=== PATIENT | male | born 1980 | race Caucasian/White ===

== ENCOUNTER 2017-08-23 09:41 | Day surgery (SDC) | payer OTHER ==
[~2017-08-23 09:41] MED LIST: Buffered Lidocaine 0.9% SYRIN* 5 ML/SYR SYRINGE INTRADERM ONE; Dexamethasone TAB* 4 MG PO ONE; DiMENhydriNATE IV* 50 MG/ML VIAL IV PUSH PRN; Famotidine IV* 10 MG/ML 2 ML (20 mg) IV ONE; Morphine INJ* 2 MG/ML 1 ML CARPUJECT IV PRN; Naloxone* 0.4 MG/ML 1 ML VIAL IV PRN; Ondansetron INJ* 2 MG/ML VIAL ONE; PROCHLORPERAZINE INJ 5 MG/ML 2 ML VIAL IV PRN; fentaNYL* 50 MCG/ML 2 ML VIAL (100 MCG VIAL) IV PRN
[2017-08-23] MEDS ORDERED: fentaNYL* 50 MCG/ML 5 ML VIAL (250 MCG VIAL) ONE (09:48)
[2017-08-23] MEDS ORDERED: Midazolam* 1 MG/ML 5 ML VIAL (5 MG) ONE (09:48)
[2017-08-23] MEDS ORDERED: Dexamethasone TAB* 4 MG ONE (09:51)
[2017-08-23] MEDS ORDERED: Famotidine IV* 10 MG/ML 2 ML (20 mg) ONE (09:51)
[2017-08-23] MEDS ORDERED: Ondansetron ODT TAB* 4 MG ONE (09:51)
[2017-08-23] MEDS ORDERED: ceFAZolin 2 GM PREMIX (*) 2 GM/50 ML BAG IVPB ONE (09:52)
[2017-08-23] MEDS ORDERED: Atracurium* 10 MG/ML 10 ML VIAL ONE (09:57)
[2017-08-23] MEDS ORDERED: Bupivacaine 0.5% SDV PF* 30ML VIAL ONE (10:56)
[2017-08-23] MEDS ORDERED: Neostigmine Methylsulfate* 2 MG/2 ML SYRINGE ONE (11:50)
[2017-08-23] MEDS ORDERED: Ketorolac INJ* 30 MG/ML 1 ML VIAL ONE (11:50)
[2017-08-23] MEDS ORDERED: Propofol* 10 MG/ML 20 ML BTL IV PUSH ONE (11:50)
[2017-08-23] MEDS ORDERED: PROCHLORPERAZINE INJ 5 MG/ML 2 ML VIAL ONE (11:50)
[2017-08-23] MEDS ORDERED: Glycopyrrolate IV* 0.2 MG/ML 1 ML VIAL ONE ×2 (11:50→12:03)
[2017-08-23] MEDS ORDERED: oxyCODONE/Acetamin 5/325 MG* TAB ONE (12:55)
[2017-08-23] MEDS: oxyCODONE/Acetamin 5/325 MG* TAB PO PRN ×2 (12:57→12:58)
--- NOTE | 2017-08-23 13:07 | OP ---
Operative Report - Blank - Operative Report Date of Operation: 08/23/17 Note: PATIENT: Fabiana Horton DATE OF : 1980 DATE OF SURGERY: 08/23/2017 SURGEON: Chris Brasher MD LANDSCAPE MANAGER: SHAYLA Mcguire, whos assistance was necessary for positioning, retraction, help with instrumentation, and closure. ANESTHESIOLOGIST: Dr. Garza PREOPERATIVE DIAGNOSIS: Right Achilles tendon rupture POSTOPERATIVE DIAGNOSIS: Right Achilles tendon rupture OPERATION: Right Achilles tendon repair ANESTHESIA: GETA IMPLANTS: none TOURNIQUET TIME: Less than 60 minutes with a well-padded thigh tourniquet at 250mmHg SPECIMENS: none ESTIMATED BLOOD LOSS: minimal COMPLICATIONS: none STATUS: Stable from the operating room to the recovery room and then home. INDICATIONS FOR PROCEDURE: Fabiana sustained the above injury. Both operative and non operative treatment alternatives were reviewed. Further, the nature and risks of surgery were reviewed in careful detail in the office as well as in the preoperative holding area. Our discussions regarding the risks of surgery included, but were not limited to, infection, wound problems, nerve injury, neuroma, RSD, persistent symptoms, blood clot, re-rupture or failure to heal, failure of the surgery, and even the remote chance of catastrophic complication, including loss of limb. DESCRIPTION OF PROCEDURE: The patient was seen in the preoperative holding unit and informed written consent was obtained. The appropriate extremity was marked. The patient was then brought to the operating room and carefully positioned on the operating room table. Anesthesia was induced. All bony prominences were padded with great care. A well-padded thigh tourniquet was placed. A chlorhexidine based pre- scrub was performed followed by a chloraprep prep and drape in standard sterile fashion. A surgical safety pause was then conducted in which we confirmed the appropriate patient, extremity, planned procedure, availability of equipment, indication and administration of prophylactic antibiotics, and DVT prophylaxis in the form of a compression boot on the non-surgical extremity. An Esmarch exsanguination of the extremity was performed and the tourniquet was inflated. I then began by making a 3 cm incision slightly posteromedial overlying the Achilles tendon. I carried the dissection down through the soft tissue and exposed the peritenon. I then came through this sharply in line with the Achilles. I exposed the Achilles tendon, which was completely ruptured. We irrigated out hematoma. At this point, I utilized an Allis clamp to pull the proximal segment distally and passed a malleable between the tendon and the peritenon posteriorly. This mobilized the proximal segment back to its proper location. I then passed a bent ringed forceps within the peritenon around the tendon proximally. We used a Andrea needle to pass #2 Fiberwire through the skin and then through the forceps, Achilles, and then through the other side. By pulling the forceps back out of the wound, we brought the suture out through the wound having been passed through the tendon. We repeated this two additional times, moving approximately 1 cm distally through the proximal segment. We similarly used the bent forceps to pass 3 strands of #2 Fiberwire through the distal segment. These sutures all had excellent purchase on the tendon. At this point, we placed a bump underneath the dorsum of the left foot to plantarflex the ankle. We then tied the sutures together, positioning the knot away from the skin edges. This nicely reapproximated the tendon ends with resting tension of the Achilles similar to the contralateral extremity, which had been assessed prior to prepping and draping. There was a restored Haile test. We then irrigated copiously. We closed in layers meticulously utilizing 3-0 Monocryl for the peritenon layer, 3-0 Monocryl for the subdermal layer, and 3-0 nylon for the skin. A sterile dressing was then applied followed by a splint with the ankle in resting equinus position. The patient was then awakened from anesthesia and transferred to the recovery room in stable condition. There were no complications. All needle and sponge counts were correct at the end of the case. ATTESTATION: I attest I was present and scrubbed and performed the critical portions of the procedure myself. POSTOPERATIVE PLAN: The patient will remain [id number] for two weeks and follow up in two weeks for likely suture removal and Steri-Strip application. We will then progress via my postoperative protocol.
[2017-08-23 13:32] VITALS: BP 121/70
== END 2017-08-23 13:44 | disposition home or self-care (01) ==
LOC: OR 09:41
PROVIDERS: ATTEND Orthopaedic Surgery
DX: S86.011A Strain of right Achilles tendon, initial encounter (principal); X50.0XXA Overexertion from strenuous movement or load, initial encounter; Y93.67 Activity, basketball; Y92.310 Basketball court as the place of occurrence of the external cause
CPT/HCPCS: A9270-GY; J0690; J0780; J1885; J2250; J2704; J3010; J8540